=== PATIENT | female | born 1960 | race Caucasian/White ===

== ENCOUNTER 2019-10-25 08:48 | Emergency (ER) | payer BC ==
[2019-10-25] MEDS ORDERED: Sodium Chloride 0.9% 10 ML Syringe FLUSH PRN (09:02)
[2019-10-25] MEDS ORDERED: Sodium Chloride 0.9% 2.5 ML Syringe FLUSH PRN (09:02)
[2019-10-25] MEDS ORDERED: Sodium Chloride 0.9% 1,000 ML IV ONE (09:02)
--- NOTE | 2019-10-25 09:07 | EDM.PDOC ---
ED HPI GENERAL MEDICAL PROBLEM - General Chief Complaint: General Stated Complaint: DISORIENTED/CONFUSED Time Seen by Provider: 10/25/19 08:52 Source of Information: Reports: Patient - History of Present Illness INITIAL COMMENTS - FREE TEXT/NARRATIVE: History of present illness: 59-year-old female presenting with forgetfulness about the events of yesterday. When she woke up this morning and she was speaking with her he noticed that she could not recall the trip they took yesterday and seemed confused and unable to answer certain questions. He wanted her to come in and get checked. She reports that she felt mildly confused but no other symptoms. She has not had any weakness or numbness. No difficulty moving arms or legs or ambulating or speaking. She does report that now she is starting to remember the events of the day start a more clearly. Not had any recent illness, chest pain, difficulty breathing. No substance or alcohol abuse. No head injury. Review of systems: As per history of present illness and below otherwise all systems reviewed and negative. Past medical history: As per history of present illness and as reviewed below otherwise noncontributory. Surgical history: As per history of present illness and as reviewed below otherwise noncontributory. Social history: No reported history of drug or alcohol abuse. Never smoker. Rare alcohol. Yesterday had a glass of wine Family history: As per history of present illness and as reviewed below otherwise noncontributory. Physical exam: Finger stick glucose: 97 GEN: no acute distress, well appearing HEENT: Atraumatic, normocephalic, mucous membranes moist, no facial droop. No facial numbness. Neck: supple, nontender, trachea midline. Lungs: No respiratory distress. Heart: RRR Extremities: Atraumatic. Neurovascularly intact. Neuro: Awake, alert, oriented. Neuro Exam nonfocal. A+O x3. Moves all extremities with good strength. Gait intact. No ataxia. No facial droop. No loss of sensation. She is able to tell me all about the trip they took yesterday including the meals they had. Skin: warm, dry, no lesions Diagnostics: Lab, EKG, CT brain, UA Therapeutics: IV fluids MDM: Impression: [] Plan: [] Definitive disposition and diagnosis as appropriate pending reevaluation and review of above. - Related Data Allergies Allergy/AdvReac Type Severity Reaction Status Date / Time No Known Allergies Allergy Verified 10/25/19 09:10 Home Meds: Home Meds . [No Known Home Meds] 10/25/19 [History] ED ROS GENERAL - Review of Systems Review Of Systems: See Below (See HPI) ED EXAM, GENERAL - Physical Exam Exam: See Below (See HPI) EKG INTERPRETATION EKG Interpretation Comments: EKG performed today at 9:10 AM, sinus bradycardia, rate 47, no acute ischemia, no STEMI. QTc 435. EKG independently interpreted by me. Course - Vital Signs Text/Narrative:: Upon awakening this morning, episode of forgetfulness and unable to recall events of yesterday. Now able to fully recall the events. Labs unremarkable. CT scan with no acute findings. Normal neurologic exam and ANO x3. Possible transient global amnesia. Discussed all of the above with the patient. Recommended admission, however the patient does not want to stay and prefers to be discharged home. We did discuss need to follow-up with outpatient primary care and neurology and she agrees to do so or return to the ER immediately if she develops any worsening symptoms. Her EKG here was bradycardic, however she reports it is chronically bradycardic and she did not feel lightheaded or dizzy at all. Last Recorded V/S: Last Vital Signs Temp 96.5 F L 10/25/19 08:50 Pulse 50 L 10/25/19 09:30 Resp 17 10/25/19 09:30 BP 139/78 10/25/19 09:30 Pulse Ox 98 10/25/19 09:30 - Orders/Labs/Meds Orders: Active Orders 24 hr Category Date Time Status EKG Documentation Completion [RC] STAT Care 10/25/19 09:03 Active Sodium Chloride 0.9% [Saline Flush] Med 10/25/19 09:02 Active 10 ml FLUSH ASDIRECTED PRN Sodium Chloride 0.9% [Saline Flush] Med 10/25/19 09:02 Active 2.5 ml FLUSH ASDIRECTED PRN Saline Lock Insert [OM.PC] Stat Oth 10/25/19 09:02 Ordered Medication Orders Sodium Chloride (Saline Flush) 10 ml FLUSH ASDIRECTED PRN PRN Reason: Keep Vein Open Last Admin: 10/25/19 09:09 Dose: 10 ml Documented by: VIALMEL Sodium Chloride (Saline Flush) 2.5 ml FLUSH ASDIRECTED PRN PRN Reason: Keep Vein Open Last Admin: 10/25/19 09:09 Dose: 2.5 ml Documented by: ALTHEA Labs: Laboratory Tests 10/25/19 10/25/19 10/25/19 Range/Units 09:00 09:00 09:00 WBC 6.35 (4.0-11.0) K/uL RBC 4.75 (4.30-5.90) M/uL Hgb 14.8 (12.0-16.0) g/dL Hct 43.9 (36.0-46.0) % MCV 92.4 (80.0-98.0) fL MCH 31.2 (27.0-32.0) pg MCHC 33.7 (31.0-37.0) g/dL RDW Std Deviation 42.8 (28.0-62.0) fl RDW Coeff of Xiomy 13 (11.0-15.0) % Plt Count 245 (150-400) K/uL MPV 9.30 (7.40-12.00) fL Neut % (Auto) 50.1 (48.0-80.0) % Lymph % (Auto) 35.3 (16.0-40.0) % [place] % (Auto) 11.0 (0.0-15.0) % Eos % (Auto) 2.5 (0.0-7.0) % Baso % (Auto) 1.1 (0.0-1.5) % Neut # (Auto) 3.2 (1.4-5.7) K/uL Lymph # (Auto) 2.2 (0.6-2.4) K/uL [place] # (Auto) 0.7 (0.0-0.8) K/uL Eos # (Auto) 0.2 (0.0-0.7) K/uL Baso # (Auto) 0.1 (0.0-0.1) K/uL INR 1.03 Sodium 143 (136-145) mmol/L Potassium 4.3 (3.5-5.1) mmol/L Chloride 107 (98-107) mmol/L Carbon Dioxide 25.8 (21.0-32.0) mmol/L BUN 19 H (7.0-18.0) mg/dL Creatinine 0.9 (0.6-1.0) mg/dL Est Cr Clr Drug Dosing TNP Estimated GFR (MDRD) > 60.0 ml/min Glucose 109 H (74-106) mg/dL Calcium 9.2 (8.5-10.1) mg/dL Magnesium 2.1 (1.8-2.4) mg/dL Troponin I < 0.050 (0.000-0.056) ng/mL TSH 3rd Generation 2.09 (0.36-3.74) uIU/mL Urine Color Urine Appearance Urine pH (5.0-8.0) Ur Specific [place] (1.001-1.035) Urine Protein (NEGATIVE) mg/dL Urine Glucose (UA) (NEGATIVE) mg/dL Urine Ketones (NEGATIVE) mg/dL Urine Occult Blood (NEGATIVE) Urine Nitrite (NEGATIVE) Urine Bilirubin (NEGATIVE) Urine Urobilinogen (<2.0) EU/dL Ur Leukocyte Esterase (NEGATIVE) Urine RBC (0-2/HPF) Urine WBC (0-5/HPF) Ur Epithelial Cells (NONE-FEW) Urine Bacteria (NEGATIVE) 10/25/19 Range/Units 09:05 WBC (4.0-11.0) K/uL RBC (4.30-5.90) M/uL Hgb (12.0-16.0) g/dL Hct (36.0-46.0) % MCV (80.0-98.0) fL MCH (27.0-32.0) pg MCHC (31.0-37.0) g/dL RDW Std Deviation (28.0-62.0) fl RDW Coeff of Xiomy (11.0-15.0) % Plt Count (150-400) K/uL MPV (7.40-12.00) fL Neut % (Auto) (48.0-80.0) % Lymph % (Auto) (16.0-40.0) % [place] % (Auto) (0.0-15.0) % Eos % (Auto) (0.0-7.0) % Baso % (Auto) (0.0-1.5) % Neut # (Auto) (1.4-5.7) K/uL Lymph # (Auto) (0.6-2.4) K/uL [place] # (Auto) (0.0-0.8) K/uL Eos # (Auto) (0.0-0.7) K/uL Baso # (Auto) (0.0-0.1) K/uL INR Sodium (136-145) mmol/L Potassium (3.5-5.1) mmol/L Chloride (98-107) mmol/L Carbon Dioxide (21.0-32.0) mmol/L BUN (7.0-18.0) mg/dL Creatinine (0.6-1.0) mg/dL Est Cr Clr Drug Dosing Estimated GFR (MDRD) ml/min Glucose (74-106) mg/dL Calcium (8.5-10.1) mg/dL Magnesium (1.8-2.4) mg/dL Troponin I (0.000-0.056) ng/mL TSH 3rd Generation (0.36-3.74) uIU/mL Urine Color YELLOW Urine Appearance CLEAR Urine pH 6.5 (5.0-8.0) Ur Specific [place] 1.010 (1.001-1.035) Urine Protein NEGATIVE (NEGATIVE) mg/dL Urine Glucose (UA) NEGATIVE (NEGATIVE) mg/dL Urine Ketones NEGATIVE (NEGATIVE) mg/dL Urine Occult Blood SMALL H (NEGATIVE) Urine Nitrite NEGATIVE (NEGATIVE) Urine Bilirubin NEGATIVE (NEGATIVE) Urine Urobilinogen 0.2 (<2.0) EU/dL Ur Leukocyte Esterase TRACE H (NEGATIVE) Urine RBC 0-2 (0-2/HPF) Urine WBC 0-2 (0-5/HPF) Ur Epithelial Cells FEW (NONE-FEW) Urine Bacteria FEW (NEGATIVE) Meds: Medications Generic Name Dose Route Start Last Admin Trade Name Freq PRN Reason Stop Dose Admin Sodium Chloride 10 ml 10/25/19 09:02 10/25/19 09:09 Saline Flush FLUSH 10 ml ASDIRECTED PRN Administration Keep Vein Open Sodium Chloride 2.5 ml 10/25/19 09:02 10/25/19 09:09 Saline Flush FLUSH 2.5 ml ASDIRECTED PRN Administration Keep Vein Open Discontinued Medications Generic Name Dose Route Start Last Admin Trade Name Freq PRN Reason Stop Dose Admin Sodium Chloride 1,000 mls @ 999 mls/hr 10/25/19 09:02 10/25/19 09:08 Normal Saline IV 10/25/19 10:02 999 mls/hr .Bolus ONE Administration - Re-Assessments/Exams Free Text/Narrative Re-Assessment/Exam: 10/25/19 11:04 I reevaluated the patient. She is feeling much better. She reports that she now remembers all the details of yesterday. She does report that she did not sleep well at all last night. We discussed all of her results and plan of care. I did discuss with her my recommendation for admission. The patient does not want to be admitted and instead prefers to go home where her will watch over her. She does not have any local doctor and therefore I will refer her both to the neurologist as well as primary care clinics in the area for rapid follow-up and we did discuss strict return instructions. She voiced understanding of all of the above. I was able to walk with her to the bathroom and observe her gait which was normal and with normal speech, normal memory, and intact strength. Departure - Departure Time of Disposition: 11:06 Disposition: Home, Self-Care 01 Clinical Impression: Confusion, Disorientation, Forgetfulness, Transient global amnesia - Discharge Information Instructions: Transient Global Amnesia, Confusion Referrals: Milagros Grewal MD [Physician] - 2 Days Forms: ED Department Discharge Additional Instructions: The cause for your symptoms today is unclear. Follow-up with the primary care physicians listed below and the neurologist listed above for further evaluation and work-up. Return to the emergency department immediately if you have any recurrence of the confusion/forgetful episode or if you develop any weakness or numbness or difficulty speaking. [facility] - Primary [facility] [address] [place] [id number] [address] [id number] The following information is given to patients seen in the emergency department who are being discharged to home. This information is to outline your options for follow-up care. We provide all patients seen in our emergency department with a follow-up referral. The need for follow-up, as well as the timing and circumstances, are variable depending upon the specifics of your emergency department visit. If you don't have a primary care physician on staff, we will provide you with a referral. We always advise you to contact your personal physician following an emergency department visit to inform them of the circumstance of the visit and for follow-up with them and/or the need for any referrals to a consulting specialist. The emergency department will also refer you to a specialist when appropriate. This referral assures that you have the opportunity for follow-up care with a specialist. All of these measure are taken in an effort to provide you with optimal care, which includes your follow-up. Under all circumstances we always encourage you to contact your private physician who remains a resource for coordinating your care. When calling for follow-up care, please make the office aware that this follow-up is from your recent emergency room visit. If for any reason you are refused follow-up, please contact the [facility] Emergency Department at and asked to speak to the emergency department charge nurse. Sepsis Event Note (ED) - Focused Exam Vital Signs: Vital Signs Temp Pulse Resp BP Pulse Ox 10/25/19 09:30 50 L 17 139/78 98 10/25/19 08:50 96.5 F L 54 L 18 152/83 H 97 - My Orders Last 24 Hours: My Active Orders 10/25/19 09:02 Sodium Chloride 0.9% [Saline Flush] 10 ml FLUSH ASDIRECTED PRN Sodium Chloride 0.9% [Saline Flush] 2.5 ml FLUSH ASDIRECTED PRN Saline Lock Insert [OM.PC] Stat 10/25/19 09:03 EKG Documentation Completion [RC] STAT - Assessment/Plan Last 24 Hours: My Active Orders 10/25/19 09:02 Sodium Chloride 0.9% [Saline Flush] 10 ml FLUSH ASDIRECTED PRN Sodium Chloride 0.9% [Saline Flush] 2.5 ml FLUSH ASDIRECTED PRN Saline Lock Insert [OM.PC] Stat 10/25/19 09:03 EKG Documentation Completion [RC] STAT
[2019-10-25 09:36] LABS: BLOOD UREA NITROGEN,BUN 19 mg/dL (7.0-18.0); CARBON DIOXIDE,CO2 25.8 mmol/L (21.0-32.0); CHLORIDE,CL 107 mmol/L (98-107); GLUCOSE RANDOM 109 mg/dL (74-106); POTASSIUM,K 4.3 mmol/L (3.5-5.1); SODIUM,NA 143 mmol/L (136-145)
--- NOTE | 2019-10-25 09:58 | CT ---
Head CT Technique: Multiple axial sections through the brain were obtained. Intravenous contrast was not utilized. Comparison: No prior intracranial imaging is available. Findings: Ventricles along with basal cisterns and sulci over the convexities are within normal limits for the patient's age. No abnormal parenchymal densities are seen. No evidence of intracranial hemorrhage. No midline shift or mass-effect is appreciated. Bone window settings were reviewed. Visualized mastoid sinuses and visualized paranasal sinuses show nothing acute. No acute calvarial finding is seen. Impression: 1. Nothing acute is identified on noncontrast head CT exam. Diagnostic code #1 This report was dictated in MDT
== END 2019-10-25 11:19 | disposition home or self-care (01) ==
LOC: MW.ED 08:48
DX: G45.4 Transient global amnesia (principal); R00.1 Bradycardia, unspecified
CPT/HCPCS: 36415; 70450; 80048; 81001; 83735; 84443; 84484; 85025; 85610; 96360; 99285; J7030; 99283